=== PATIENT | female | born 1960 | race Caucasian/White ===

== ENCOUNTER → 2020-07-01 12:16 | Outpatient (BNVA) | payer OTHER, SELFPAY | PROVIDERS: Family Provider Nurse Practitioner Family; PCP Nurse Practitioner Family; Visit Provider Nurse Practitioner Family | DX: Z11.59 Encounter for screening for other viral diseases (principal) | CPT/HCPCS: 87635 ==

== ENCOUNTER 2022-03-29 11:47 | Emergency (ER) | payer OTHER, SELFPAY ==
[2022-03-29 11:58] VITALS: BP 144/80; PULSE 72; RESP 16; TEMP 36.9; O2SAT 99; BMI 29.2
--- NOTE | 2022-03-29 12:39 | W.ED.FALL ---
HPI - Fall General: Chief Complaint: Fall Stated Complaint: fall, left hip and side pain Time Seen by Provider: 03/29/22 12:39 History of Present Illness: Ms. Flaherty is a 62-year-old lady who presents to the emergency department due to fall with back pain. Fall was yesterday out of a car where she struck the left side of her back on the running boards. She denies head strike or loss of consciousness. She immediately had pain however pain is persisted. She describes a burning sharp stabbing sensation in the left back worse with certain movements. Course has persisted. Intensity is moderate. No other specific changes in health, exacerbating, or alleviating factors identified. Onset (ago): day(s) Fall from: standing Loss of consciousness: None Symptoms prior to fall: none Location of injury: back Severity: moderate Quality: sharp and stabbing Review of Systems General: Reports: 10 or more systems reviewed and unremarkable except in HPI and below PFSH ED PFSH: Medical History History of degenerative disc disease Surgical History History of brain surgery Social History Smoking and tobacco status: never smoked Alcohol intake: never Physical Exam Const: COMMON NORMALS: alert GENERAL APPEARANCE: cooperative and well developed HENMT: COMMON NORMALS: normocephalic and atraumatic HEAD & SCALP: normocephalic and atraumatic Eye: COMMON NORMALS: conjunctivae normal CONJUNCTIVA: Yes conjunctivae normal SCLERA: sclerae normal Neck/C-Spine: COMMON NORMALS: supple GENERAL: Yes trachea midline Resp: COMMON NORMALS: normal respiratory effort and clear to auscultation bilaterally EFFORT & INSPECTION: Yes able to speak in complete sentences AUSCULTATION: clear to auscultation bilaterally Cardio: COMMON NORMALS: regular rate and regular rhythm RATE: regular rate RHYTHM: regular rhythm GI: COMMON NORMALS: Soft to palpation PALPATION: Yes Soft to palpation, Yes Tenderness to palpation present (GI), No Guarding due to palpation present (GI) and No Rigid due to palpation PERCUSSION: normal to percussion Back/Pelvis: LUMBAR SPINE/LOWER BACK: Yes lumbar spinal tenderness and Yes paraspinal muscle tenderness OTHER: Abrasion to left back with contusion Extremity: GENERAL: Yes normal exam except as noted and No edema Neuro: COMMON NORMALS: moves all extremities SENSORIUM/ORIENTATION: Yes alert and No Orientation impaired Psych: COMMON NORMALS: mental status grossly normal and Normal thought process present THOUGHT PROCESS: Normal thought process present Course Vital Signs: Vital signs: Vital Signs Temperature 98.4 F 03/29/22 11:58 Pulse Rate 72 03/29/22 11:58 Respiratory Rate 16 03/29/22 11:58 Blood Pressure 144/80 03/29/22 11:58 Pulse Oximetry 99 03/29/22 11:58 MDM - Fall Medical Decision Making 62-year-old lady with back and abdominal pain after fall yesterday. Patient denies preceding symptoms. CTs negative acute traumatic injury Most likely etiology is soft tissue contusion/injury. Patient improved with Toradol. Satisfactory for outpatient management. Medical Records I reviewed the patient's medical records. Lab Data I reviewed the patient's lab results. Radiology Impressions Abdomen/Pelvis CT 03/29/22 12:45 IMPRESSION: No acute abnormality. Lumbar Spine CT 03/29/22 12:45 IMPRESSION: 1. No acute abnormality. 2. 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 Discharge Plan Discharge Patient Disposition: Home Clinical Impression: Fall, Back pain Condition: Stable Prescriptions: New methocarbamol 750 mg tablet 750 mg PO TID Qty: 14 0RF No Action cetirizine-pseudoephedrine [Zyrtec-D] 5-120 mg tablet extended release 12 hr 1 tab PO BID 0RF cholecalciferol (vitamin D3) 25 mcg (1,000 unit) capsule 25 mcg PO DAILY 0RF zinc 50 mg tablet 50 mg PO DAILY 0RF ascorbate calcium (vitamin C) 500 mg tablet 500 mg PO DAILY 0RF Discharge Orders: Discharge ED (Routine); Ordered 03/29/22 Ordered By: Mynor Crowley Referrals: Christofer Grubbs FNP [Primary Care Provider] - Discharge Diet: Usual diet Discharge Activity: Increase activity as tolerated Patient Instructions: Back Pain (ED) Activity Restrictions/Additional Instructions: Thank you for visiting the emergency department. You were seen and evaluated for fall with back pain. The exact cause of your symptoms is unclear though likely related to soft tissue injury as no acute injuries were identified on CT scan. Treatment is supportive. You may use Tylenol and ibuprofen however please do not exceed the daily recommended dosage and please keep in mind that many namebrand medications contain the same active ingredients. Please follow-up with your primary care provider. Return to the emergency department for uncontrolled pain or anything else that you are concerned about a feel needs emergency department evaluation. Coding Level of Care Code ED [employer] for [employer] Exam Comprehensive
--- NOTE | 2022-03-29 12:45 | CTR_ITS ---
PROCEDURE INFORMATION: Exam: CT Lumbar Spine Without Contrast Exam date and time: 03/29/2022 12:58 PM Age: 62 years old Clinical indication: Injury or trauma; Fall; Blunt trauma (contusions or hematomas); Prior surgery; Surgery date: 6+ months; Surgery type: Hyster; Additional info: Fall, burning left sided paraspinal pain TECHNIQUE: Imaging protocol: Computed tomography of the lumbar spine without contrast. Radiation optimization: All CT scans at this facility use at least one of these dose optimization techniques: automated exposure control; mA and/or kV adjustment per patient size (includes targeted exams where dose is matched to clinical indication); or iterative reconstruction. COMPARISON: No relevant prior studies available. RADIATION DOSE METRICS: Total DLP (mGy-cm): 2233.08 FINDINGS: Bones/joints: No fracture, malalignment or other acute abnormality. Chronic degenerative changes are present, predominantly in the lower lumbar facet joints with narrowing and sclerosis. Discs/Spinal canal/Neural foramina: No significant disc protrusion. No severe spinal canal stenosis. No significant neural foraminal narrowing. Soft tissues: Unremarkable. CT/CT lumbar spine wo con* [id number] IMPRESSION: 1. No acute abnormality. 2. 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
--- NOTE | 2022-03-29 12:45 | CTR_ITS ---
PROCEDURE INFORMATION: Exam: CT Abdomen And Pelvis Without Contrast Exam date and time: 03/29/2022 1:01 PM Age: 62 years old Clinical indication: Injury or trauma; Fall; Blunt; Injury details: Left abdominal wall; Prior surgery; Surgery date: 6+ months; Surgery type: Hyster; Additional info: Fall, left sided abd pain TECHNIQUE: Imaging protocol: Computed tomography of the abdomen and pelvis without contrast. Radiation optimization: All CT scans at this facility use at least one of these dose optimization techniques: automated exposure control; mA and/or kV adjustment per patient size (includes targeted exams where dose is matched to clinical indication); or iterative reconstruction. COMPARISON: CT lumbar spine wo con* [id number] 03/29/2022 12:58 PM RADIATION DOSE METRICS: Total DLP (mGy-cm): 1505.91 FINDINGS: Liver: Normal. No mass. Gallbladder and bile ducts: Normal. No calcified stones. No ductal dilation. Pancreas: Normal. No ductal dilation. Spleen: Normal. No splenomegaly. Adrenal glands: Normal. No mass. Kidneys and ureters: There is a nonobstructing 5 mm calcification in the right kidney. There is no hydronephrosis. The left kidney is unremarkable. Stomach and bowel: Unremarkable. No obstruction. No mucosal thickening. Appendix: No evidence of appendicitis. Intraperitoneal space: Unremarkable. No free air. No significant fluid collection. Vasculature: There is calcification of the aorta. There is no abdominal aortic aneurysm. Lymph nodes: Unremarkable. No enlarged lymph nodes. Urinary bladder: Unremarkable as visualized. Reproductive: Unremarkable as visualized. Bones/joints: Unremarkable. No acute fracture. Soft tissues: Unremarkable. CT/CT abdomen pelvis wo con [id number] IMPRESSION: No acute abnormality.
[2022-03-29] MEDS: ketorolac 30 mg/mL INJ IM (13:16)
== END 2022-03-29 14:43 | disposition home or self-care (01) ==
PROVIDERS: Emergency Provider Emergency Medicine; PCP Nurse Practitioner Family
DX: M54.9 Dorsalgia, unspecified (principal); W17.89XA Other fall from one level to another, initial encounter
CPT/HCPCS: 72131; 74176; 96372; 99284; J1885

== ENCOUNTER → 2022-05-16 16:35 | Outpatient (BNVA) | payer OTHER, SELFPAY | PROVIDERS: PCP Nurse Practitioner Family; Visit Provider Emergency Medicine | DX: R33.9 Retention of urine, unspecified (principal); R68.89 Other general symptoms and signs; U07.1 COVID-19; N30.01 Acute cystitis with hematuria | CPT/HCPCS: 81000; 87426 ==

== ENCOUNTER → 2023-11-16 12:58 | Outpatient (BNVA) | payer MEDICARE, BC, SELFPAY | PROVIDERS: PCP Nurse Practitioner Family; Visit Provider Nurse Practitioner Family | DX: U07.1 COVID-19 (principal) | CPT/HCPCS: 87426 ==